=== PATIENT | female | born 1935 | race Caucasian/White ===

== ENCOUNTER → 2017-05-29 | Outpatient (CLI) | payer MEDICARE, BC ==
[~2017-05-29] MED LIST: SODIUM CHLORIDE 0.9% 500 ML in EMPTY BAG 1 BAG IV PRN; ZOLEDRONIC ACID 5 MG in SODIUM CHLORIDE 0.9% 100 ML IV ONE
[2017-05-29 14:03] VITALS: BP 147/84; PULSE 66; RESP 16; TEMP 98.1
== END | disposition home or self-care (01) ==
LOC: PROCWHC3 13:06
PROVIDERS: ATTEND Family Medicine
DX: M81.0 Age-related osteoporosis without current pathological fracture (principal)
CPT/HCPCS: 96365; J3489